=== PATIENT | male | born 2000 | race Caucasian/White ===

== ENCOUNTER 2021-05-16 08:27 | Emergency (ER) | payer OTHER ==
[~2021-05-16 08:27] MED LIST: PEPCID20 MG PO; TORADOL 10 MG T10 MG PO
== END 2021-05-16 09:20 | disposition home or self-care (01) ==
LOC: ER1 08:27
DX: R42 Dizziness and giddiness (principal); T46.5X5A Adverse effect of other antihypertensive drugs, initial encounter; T38.0X5A Adverse effect of glucocorticoids and synthetic analogues, initial encounter; I10 Essential (primary) hypertension; F41.9 Anxiety disorder, unspecified
CPT/HCPCS: 99284

== ENCOUNTER 2021-07-12 07:07 | Emergency (ER) | payer OTHER ==
[2021-07-12] MEDS ORDERED: PENVEE K 500 M500 MG PO (08:41)
== END 2021-07-12 08:57 | disposition home or self-care (01) ==
LOC: ER1 07:07
DX: J02.0 Streptococcal pharyngitis (principal); F17.290 Nicotine dependence, other tobacco product, uncomplicated; Z20.822 Contact with and (suspected) exposure to COVID-19
CPT/HCPCS: 0240U; 87081; 87880; 99283

== ENCOUNTER 2021-10-15 09:41 | Emergency (ER) | payer OTHER ==
[~2021-10-15 09:41] MED LIST changes: +PENVEE K 500 M500 MG PO
[2021-10-15] MEDS ORDERED: NAPROSYN500 MG PO (12:18)
== END 2021-10-15 13:07 | disposition home or self-care (01) ==
LOC: ER1 09:41
DX: M54.50 Low back pain, unspecified (principal); G89.29 Other chronic pain; F17.290 Nicotine dependence, other tobacco product, uncomplicated
CPT/HCPCS: 99283